=== PATIENT | male | born 1995 | race Caucasian/White ===

== ENCOUNTER 2023-06-29 20:09 | Emergency (ER) | payer SELFPAY ==
[~2023-06-29] VITALS: Ht 172.7 cm; Wt 86.0 kg
[2023-06-29 20:12] VITALS: O2SAT 98
[2023-06-29] MEDS: IBUPROFEN 600MG TABLET PO ONE (22:20)
[2023-06-29] MEDS: ACETAMINOPHEN 325MG TABLET PO ONE (22:20)
[2023-06-29] MEDS ORDERED: NAPR220C61 MT (23:18)
[2023-06-29 23:29] VITALS: BP 121/82; PULSE 96; RESP 20; TEMP 96.8
== END 2023-06-29 23:35 | disposition home or self-care (01) ==
LOC: ER 20:09
DX: M79.606 Pain in leg, unspecified (principal)
CPT/HCPCS: 99283